=== PATIENT | male | born 1970 | race African-American/Black ===

== ENCOUNTER 2019-03-16 15:11 | Inpatient (IN) ==
--- NOTE | 2019-03-16 17:36 | PROVIDER DOCUMENTATION ---
HPI-General Adult - General Chief Complaint: Return/Recheck Stated Complaint: R-HAND SWELLING/RETURN/RCK Time Seen by Provider: 03/16/19 17:11 Source: patient Allergies/Adverse Reactions: Patient Allergies Allergy/AdvReac Type Severity Reaction Status Date / Time No Known Allergies Allergy Verified 10/29/14 11:30 Home Medications: Home Medication List Medication Instructions Recorded Confirmed Last Taken Type Dicyclomine [Bentyl] 20 mg PO BID PRN #20 capsule 10/21/16 06/22/17 Unknown Rx Ondansetron [Zofran] 4 mg PO Q6H PRN PRN #20 tablet 10/21/16 06/22/17 Unknown Rx Albuterol Sulfate [Proair 90 mcg IH Q6HR PRN 06/22/17 06/22/17 Unknown History Respiclick] Budesonide/Formoterol Inhaler 2 puff INH RTBID 06/22/17 06/22/17 Unknown History [Symbicort 160/4.5 Microgm Inhaler] Chlordiazepoxide [Librium] 25 mg PO TID #6 cap 06/26/17 Unknown Rx Cyanocobalamin [Vitamin B-12] 1,000 microgm PO DAILY #30 tab 06/26/17 Unknown Rx Folic Acid 1 mg PO DAILY #30 tab 06/26/17 Unknown Rx Thiamine [Vitamin B-1] 100 mg PO DAILY #30 tab 06/26/17 Unknown Rx Tramadol [Ultram] 50 mg PO Q6H PRN PRN #25 tab 06/26/17 Unknown Rx Naproxen 500 mg PO BID #20 tab 03/14/19 Unknown Rx Sulfamethoxazole/Tmp D.s. [Sept 1 ea PO BID #30 tab 03/14/19 Unknown Rx Ds] - History of Present Illness -Gen Adult Nature of Presenting Problems: [id number] presents to the ER for a recheck on a right hand injury. He states that on Mar 10 he hit a glass picture frame cutting his wrist. He came to the ER and was treated for a wound infection 3 days later and placed on oral antibiotics. He returns today for worsening of the infection. He states that he is unsure if he has been running fever at home. Location of Pain/Injury: reports: hand(s) (right wrist and hand) Pain Radiation: reports: arm(s) (right arm) Quality of Pain: reports: sharp, throbbing Severity: reports: moderate Onset/Duration: reports: 1 week ago Timing: reports: getting worse Similar Symptoms Previously?: Yes Recently seen or treated by another doctor?: Yes Review of Systems - Adult - REVIEW OF SYSTEMS - ADULT Constitutional: reports: see HPI, chills Eyes: reports: no symptoms reported Ears, Nose, Mouth & Throat: reports: no symptoms reported Cardiovascular: reports: no symptoms reported Respiratory: reports: no symptoms reported Gastrointestinal: reports: no symptoms reported Genitourinary: reports: no symptoms reported Musculoskeletal: reports: see HPI, joint pain (right wrist), joint swelling (right wrist) Integumentary: reports: see HPI, other (laceration with drainage and swelling of the right hand and fingers) Neurological: reports: no symptoms reported Psychiatric: reports: no symptoms reported Endocrine: reports: no symptoms reported Hematologic/Lymphatic: reports: no symptoms reported Allergic/Immunologic: reports: no symptoms reported All Other Systems: Reviewed and Negative Past History - Adult - PAST MEDICAL HISTORY-ADULT Review of Records: reports: Old Records Reviewed, Nursing Assessment Review, Medications Reviewed, Social history reviewed & non-contributory. Major Childhood Illnesses: reports: denies history Cardiovascular: reports: HTN Respiratory: reports: asthma, COPD Gastrointestinal: reports: denies history Obstetrical/Gynecological: reports: denies history Genitourinary: reports: denies history Musculoskeletal: reports: denies history Neurological: reports: denies history Psychiatric: reports: ptsd Endocrine/Immune: reports: denies history Other Conditions: reports: denies history - PRIOR SURGERIES/PROCEDURES Surgical/Procedure History: reports: orthopedic (extremity) (right BKA) - PRIOR HOSPITALIZATIONS Prior Hospitalizations: reports: psychiatric or rehab - IMMUNIZATION STATUS Childhood Immunizations: See Nurse Assessment Flu Vaccine: See Nurse Assessment - FAMILY HISTORY Family History: reviewed, not pertinent - SOCIAL HISTORY Smoking: greater than 1 pack/day Provider spent 3-5 mins advising pt. on dangers of tobacco.: Discussed manners to quit use, and f/u contacts for add'l counseling. Substance Use: denies Living Situation: family Physical Exam-General - PHYSICAL EXAM-ADULT Initial Vital Signs Reviewed: Yes - CONSTITUTIONAL General Appearance: no apparent distress, mild distress - EYES Eyes: PERRL/EOMI, pink conjunctivae - HEAD, EARS, NOSE, MOUTH & THROAT HENMT: moist mucous membranes - NECK Neck: full range of motion, supple - RESPIRATORY Respiratory: lungs clear, normal breath sounds - CARDIOVASCULAR Cardiovascular: regular rate, rhythm - GASTROINTESTINAL (ABDOMEN) Abdominal Exam: non tender, soft - LYMPHATIC Lymphatic: no adenopathy - MUSCULOSKELETAL Back Exam: normal inspection Extremity: erythema (right hand and fingers), swelling, tenderness (right hand to mid forearm) - SKIN Integumentary: erythema (right hand and fingers), laceration(s) (right wrist with purulent drainage), swelling (right hand, fingers, forarm), tenderness (right hand, fingers, forearm) - PSYCHIATRIC Psych/Mental Status: oriented x 3 Progress - PLAN OF CARE/RESULTS Progress/Plan/Lab Results: Vital Signs - 8 hr 03/16/19 15:21 Temperature 97.9 F Pulse Rate 110 H Respiratory Rate 18 Blood Pressure 117/67 O2 Sat by Pulse Oximetry 99 Orders Category Date Time Status CBC WITH ELECTRONIC DIFF [HEME] Stat Lab 03/16/19 17:29 Uncollected COMPREHENSIVE METABOLIC PANEL [CHEM] Stat Lab 03/16/19 17:29 Uncollected patient verbalizes an understanding of POC and agrees with treatment rendered here today. - CONSULTS/PCP/HOSPITALIST Notification #1 *Consult/PCP/Hospitalist*: Dr Morales Time Discussed: 18:21 Reason/Comments: Cellulitis, infected wound Consult Disposition: Admit Departure - Departure Date of Disposition Decision: 03/16/19 Time of Disposition Decision: 18:22 DIAGNOSIS: Infected wound Cellulitis Qualifiers: Site of cellulitis: extremity Site of cellulitis of extremity: upper extremity Laterality: right Qualified Code(s): L03.113 - Cellulitis of right upper limb Disposition: ADMITTED INPATIENT 09 Certified Medical Emergency: Emergent Condition: Critical Additional Freetext Instructions: ED Follow Up Instructions: You have been treated by a care provider in the Emergency Department. These instructions are being provided to you so you can have an understanding of how to care for yourself upon discharge. Upon discharge from the Emergency Department, you are responsible for making arrangements for follow-up care by a physician of your choice. Take all prescribed medications as directed. Return to the Emergency Department immediately for any new or worsening symptoms. You may call the Physician Referral phone number at [phone] to obtain a list of Physicians who are taking new patients. Referrals and Follow-Ups: Jt Ortega MD [Primary Care Provider] - - Critical Care Note This patient required my direct & personal management of CC.: No Attestation - Physician/ FLORY Attestation Patient care was provided by Advanced Practice Provider:: Yes Advanced Practice Provider:: Gera Tyler Advanced Practice Provider documentation review:: The Mid-level provider documentation, treatment plan and medical decision making was reviewed by the physician who agrees with all treatment and medical decision making by the MLP. The physician spent face to face time with patient:: No Advanced Practice Provider documentation review:: Supervising physician onsite and consulted in the evaluation and care of this patient. The physician did not have a face to face encounter with the patient.
[2019-03-16 18:30] LABS: BASO# 0.02 X1000 (0.0-0.2); BASO% 0.2 % (0.0-0.8); EOS% 0.9 % (0.0-10.0); HEMATOCRIT 36.2 % (42.0-52.0); HEMOGLOBIN 12.5 g/dL (14.0-18.0); IMM GRAN# 0.05 X1000 (0.0-0.04); IMM GRAN% 0.4 % (0.0-0.5); LYMPH# 1.36 X1000 (1.2-3.4); LYMPH% 12.1 % (20.5-51.1); MCHC 34.5 g/dL (33-37); MCV 81.2 FL (81-99); MONO# 2.24 X1000 (0.11-0.59); MONO% 19.9 % (1.7-9.3); MPV 9.1 FL (7.4-10.4); NEUT% 66.5 % (42.2-75.2); PLT 254 X1000 (130-400); RBC 4.46 XMIL (4.7-6.1); RDW 14.4 % (11.5-14.5); WBC 11.27 X1000 (4.8-10.8)
[2019-03-16 18:49] LABS: AGAP 16; ALKALINE PHOSPHATASE 84 U/L (32-122); BUN 13 mg/dL (8-22); CALCIUM 8.7 mg/dL (8.8-10.2); CHLORIDE 93 mmol/L (98-107); COSMO 261; ESTIMATED GFR > 60; GLUCOSE 100 mg/dL (70-104); GOT 25 U/L (10-34); GPT 20 U/L (10-44); POTASSIUM 3.8 mmol/L (3.5-5.1); SODIUM 130 mmol/L (136-145); TCO2 22 mmol/L (25-35); TOTAL PROTEIN 7.8 g/dL (6.3-8.3)
[2019-03-16] MEDS ORDERED: ZOFRAN IV PRN (19:53)
[2019-03-16] MEDS ORDERED: DUONEB (A & A) INH PRN (19:53)
[2019-03-16] MEDS ORDERED: VANCOMYCIN IV PER PHARMACY MISC SCH (19:53)
[2019-03-16] MEDS ORDERED: TYLENOL PO PRN (19:53)
[2019-03-16] MEDS: NS 1,000 ML IV SCH (21:08)
[2019-03-16] MEDS: ROCEPHIN 1 GM in NS 50 ML IV SCH (21:08)
[2019-03-16 21:23] LABS: BASO% 0.2 % (0.0-0.8); HEMATOCRIT 35.6 % (42.0-52.0); HEMOGLOBIN 12.1 g/dL (14.0-18.0); IMM GRAN% 0.3 % (0.0-0.5); LYMPH# 1.55 X1000 (1.2-3.4); LYMPH% 15.5 % (20.5-51.1); MCH 27.6 PG (27-31); MCV 81.3 FL (81-99); MONO% 17.6 % (1.7-9.3); MPV 9.2 FL (7.4-10.4); NEUT# 6.56 X1000 (1.4-6.5); NEUT% 65.4 % (42.2-75.2); PLT 271 X1000 (130-400); RBC 4.38 XMIL (4.7-6.1); RDW 14.3 % (11.5-14.5); WBC 10.03 X1000 (4.8-10.8)
[2019-03-16 21:24] LABS: BASO# 0.02 X1000 (0.0-0.2); IMM GRAN# 0.03 X1000 (0.0-0.04); MONO# 1.77 X1000 (0.11-0.59)
[2019-03-16 21:25] LABS: BILIRUBIN URINE NEGATIVE (NEGATIVE); BLOOD URINE NEGATIVE (NEGATIVE); GLUCOSE URINE NEGATIVE (NEGATIVE); KETONE URINE 1+(Small) mg/dL (NEGATIVE); LEUKOCYTES URINE NEGATIVE (NEGATIVE); NITRITE URINE NEGATIVE (NEGATIVE); PH URINE 6.5; PROTEIN URINE TRACE mg/dL (NEGATIVE); SP GRAVITY URINE 1.015; UROBILINOGEN URINE 4 mg/dL
[2019-03-16 21:26] LABS: CLARITY CLEAR (CLEAR); COLOR YELLOW
[2019-03-16 21:34] LABS: URINE WBC <10 /HPF (<10)
[2019-03-16 21:35] LABS: URINE BACTERIA NEGATIVE /HFP; URINE EPITHELIAL CELLS <10 /HPF (<10); URINE RBC <10 /HPF (<10); URINE SOURCE CLEAN CATCH
[2019-03-16 21:44] LABS: INR 0.93; PROTIME 12.9 Seconds (11.0-16.0)
[2019-03-16 21:45] LABS: PTT 37.7 Seconds (22.3-41.8)
--- NOTE | 2019-03-16 21:56 | Diag Imaging Result Doc PS360 ---
EXAM: CHEST-1 VIEW INDICATION: SEPSIS PROTOCOL TECHNIQUE: One view COMPARISON: 12/06/2018 FINDINGS: There is stable scoliosis. The lungs are grossly clear. There is no discrete pleural fluid collection or pneumothorax. The cardiomediastinal silhouette and central vasculature are grossly unremarkable. IMPRESSION: No evidence of acute pathology by plain radiograph. Electronically signed by Desean Pierre 03/16/2019 9:53 PM
[2019-03-16 21:57] LABS: CK INDEX 0.7 (0.0-2.5); CK-MB 2.54 ng/mL (0.0-5.0)
[2019-03-16] MEDS ORDERED: VANCOMYCIN 1 GM/NS 1 GM/250 ML IVPB IV ONE (22:00)
[2019-03-16] MEDS: NORCO-5 PO PRN (22:50)
[2019-03-16] MEDS ORDERED: VANCOMYCIN 500 MG/NS 500 MG/100 ML IVPB IV ONE (23:00)
--- NOTE | 2019-03-17 01:27 | HISTORY AND PHYSICAL ---
CHIEF COMPLAINT: Right hand pain, swelling. HISTORY OF PRESENT ILLNESS: Patient is a 49-year-old male who presented to [facility]'s ER a couple of days ago. He had apparently fallen 3 or 4 days prior to that on some glass and cut his wrist. He presented to the ER 3 days ago and was noted to have redness and swelling. He was placed on antibiotics. The patient states he has been taking his antibiotics twice a day with food although that does seem somewhat odd given that his prescription bottle completely packed full with Bactrim. Notes that his hand swelling and pain have continued to worsen. States he has good sensation in his fingertips. ALLERGIES: No known drug allergies. MEDICATIONS: I do not have an active prescription medication list although he has recently been on Bactrim. PAST MEDICAL HISTORY: Hypertension, COPD. He has had a BKA on the right. REVIEW OF SYSTEMS: Positive right hand and wrist swelling. Denies any fevers, chills, cough, congestion. Denies shortness of breath, dyspnea on exertion. Denies any swelling in his left lower extremity. Denies headaches, blurred vision, change in vision. Denies any diarrhea, constipation, melena, hematochezia. FAMILY HISTORY: Noncontributory. SOCIAL HISTORY: Patient lives at home. Denies illicit substance use. Does smoke at least a pack a day. PHYSICAL EXAMINATION: VITAL SIGNS: Reviewed. Temperature 97.9 degrees, pulse 110, respiratory rate 18, BP 117/67. GENERAL: Patient is awake, alert, currently in no respiratory distress. Very pleasant to talk with, sitting up on the side of bed. HEENT: Normocephalic. NECK: Supple. CARDIOVASCULAR: Regular rate. CHEST: Clear. ABDOMEN: Soft, nondistended. EXTREMITIES: Moves all extremities. He is noted to have a right BKA. SKIN: His right hand is swollen from the wrist to his fingertips. He has a laceration over the lateral wrist with some purulent drainage. He has moderate swelling of his hand and fingers. Has tenderness as well. NEUROLOGIC: He is awake, alert, oriented x3. LABORATORIES: Currently pending. ASSESSMENT: 1. Cellulitis right upper extremity, failed outpatient management. 2. Hypertension. 3. Chronic tobacco abuse. PLAN: We will admit patient to the hospital on vancomycin and Rocephin, follow his blood pressures, [place] for pain control and we will follow. cc: Jam Morales MD
[2019-03-17] MEDS: NORCO-5 PO PRN ×2 (03:54→08:23)
[2019-03-17 07:14] LABS: HEMOGLOBIN 10.9 g/dL (14.0-18.0); MCV 81.9 FL (81-99); MPV 9.1 FL (7.4-10.4); RBC 4.03 XMIL (4.7-6.1); RDW 14.4 % (11.5-14.5); WBC 7.45 X1000 (4.8-10.8)
[2019-03-17 07:43] LABS: AGAP 12; ALBUMIN 3.2 g/dL (3.5-5.0); ALKALINE PHOSPHATASE 70 U/L (32-122); BUN 9 mg/dL (8-22); CALCIUM 8.2 mg/dL (8.8-10.2); CHLORIDE 98 mmol/L (98-107); COSMO 261; CREATININE 0.7 mg/dL (0.7-1.2); ESTIMATED GFR > 60; GLUCOSE 101 mg/dL (70-104); GOT 21 U/L (10-34); GPT 16 U/L (10-44); POTASSIUM 3.5 mmol/L (3.5-5.1); SODIUM 131 mmol/L (136-145); TCO2 21 mmol/L (25-35); TOTAL PROTEIN 6.7 g/dL (6.3-8.3)
[2019-03-17] MEDS: LIBRIUM PO SCH ×3 (08:24→22:12)
[2019-03-17] MEDS: NS 1,000 ML IV SCH ×2 (10:58→19:44)
[2019-03-17] MEDS: NORCO-10 PO PRN ×2 (13:03→22:11)
--- NOTE | 2019-03-17 18:02 | PROGRESS NOTE ---
DATE: 03/17/2019 SUBJECTIVE: Patient notes his right hand is still swollen and tender. He still has good sensation of his fingertips. Denies any fevers or chills. OBJECTIVE: Temperature 98, pulse 81, respiratory rate 18, BP 113/79.General: Patient is awake. He is in no current respiratory distress. HEENT: Normocephalic. Neck: Supple. Cardiovascular: Regular rate. Chest: Clear, nonlabored. Abdomen: Soft, nondistended. Extremities: Moves all extremities. Neurologic: No changes. Skin: His right hand is still swollen, tender. His wrist actually has improved, currently is bandaged. Drainage seems to be improving as well. PLAN: We will continue patient in the hospital. Continue Rocephin, vancomycin. Continue pain control. We will actually increase his [place] from 5 to 10, and we will follow. cc: Jam Morales MD
[2019-03-17] MEDS: VANCOMYCIN 1,350 MG in NS 250 ML IV SCH (19:44)
[2019-03-17] MEDS: ROCEPHIN 1 GM in NS 50 ML IV SCH (22:13)
[2019-03-18] MEDS: NORCO-10 PO PRN ×5 (03:26→23:40)
[2019-03-18] MEDS: LIBRIUM PO SCH ×4 (03:26→21:09)
[2019-03-18] MEDS: VANCOMYCIN 1,350 MG in NS 250 ML IV SCH (11:04)
[2019-03-18] MEDS: NS 1,000 ML IV SCH ×2 (11:11→13:55)
--- NOTE | 2019-03-18 17:16 | PROGRESS NOTE ---
DATE: 03/18/2019 SUBJECTIVE: The patient notes he feels a lot better. The wound therapy did get lots of pus out yesterday. His hand is improved. Denies any fevers, chills. Denies loss of sensation in his fingertips. PHYSICAL EXAMINATION: Vital Signs: Temperature 98 degrees, pulse 98, respiratory rate 18, BP 126/74. General: Patient is awake. He is in no distress. HEENT: Normocephalic. Neck: Supple. Cardiovascular: Regular rate. Chest: Clear. Abdomen: Soft. Extremities: Moves all extremities. Skin: His right hand is still erythematous, still edematous, but the edema is much improved compared to yesterday's exam. He has full sensation of his digits distally. ASSESSMENT: 1. Cellulitis, right upper extremity. 2. Hypertension. 3. Chronic tobacco abuse. PLAN: We will continue antibiotics. Apparently he was growing gram-positive cocci. cc: Jam Morales MD
[2019-03-18] MEDS: ROCEPHIN 1 GM in NS 50 ML IV SCH (21:09)
[2019-03-19] MEDS: LIBRIUM PO SCH ×4 (02:20→20:15)
[2019-03-19] MEDS: NORCO-10 PO PRN ×5 (02:31→18:42)
[2019-03-19] MEDS: NS 1,000 ML IV SCH ×2 (02:32→20:15)
[2019-03-19] MEDS: VANCOMYCIN 1,350 MG in NS 250 ML IV SCH (05:46)
[2019-03-19] MEDS: CLINDAMYCIN 900 MG/D5W 900 MG/50 ML IVPB IV SCH ×2 (10:44→18:42)
--- NOTE | 2019-03-19 11:53 | Diag Imaging Result Doc PS360 ---
EXAM: WRIST COMPLETE RIGHT 03/19/2019 HISTORY: pain/trauma/? glass TECHNIQUE: Right wrist three views COMMENT: There is soft tissue swelling over the dorsum of the hand and medial to the distal ulna. The latter finding is somewhat more prominent than on the previous study of 03/14/2019. No radiopaque foreign bodies are demonstrated. There is no evidence of acute fracture or dislocation. IMPRESSION: Soft tissue swelling. No acute bony abnormality. Electronically signed by Jose Carlos James 03/19/2019 11:51 AM
--- NOTE | 2019-03-19 17:46 | PROGRESS NOTE ---
DATE: 03/19/2019 SUBJECTIVE: Patient notes that his right hand is a little more swollen today than yesterday. Still has good sensation. It is hurting. Still draining. Denies any fevers, chills, or rashes elsewhere. OBJECTIVE: Vital signs: Temperature 98.7, pulse 87, respiratory rate 18, BP 137/86. General: Patient is awake. Currently in no distress. HEENT: Normocephalic. Neck: Supple. Cardiovascular: Regular rate. Chest: Clear, nonlabored. Abdomen: Soft, nondistended. Extremities: Moves all extremities. Neurologic: No focal changes. Skin: His right hand is bandaged, clean, dry, intact. It is a little more swollen today than it was yesterday and a little more tender. ASSESSMENT: 1. Cellulitis right upper extremity with methicillin-sensitive Staphylococcus aureus. 2. Hypertension. 3. Chronic tobacco abuse. PLAN: We will continue the patient in hospital. Repeat x-ray does not show any bone involvement nor does it show any apparent foreign body. cc: Jam Morales MD
[2019-03-20] MEDS: LIBRIUM PO SCH ×2 (01:55→09:30)
[2019-03-20] MEDS: CLINDAMYCIN 900 MG/D5W 900 MG/50 ML IVPB IV SCH (01:56)
[2019-03-20] MEDS: NS 1,000 ML IV SCH (06:44)
[2019-03-20 08:04] VITALS: BP 143/91
[2019-03-20] MEDS ORDERED: CLEOCIN PO SCH (09:00)
[2019-03-20] MEDS: NORCO-10 PO PRN (09:30)
--- NOTE | 2019-03-21 09:46 | DISCHARGE SUMMARY ---
ADMISSION DATE: 03/16/2019 DISCHARGE DATE: 03/20/2019 ADMISSION DIAGNOSES: 1. Cellulitis, right upper extremity, failed outpatient management. 2. Hypertension. 3. Chronic tobacco abuse. DISCHARGE DIAGNOSES: 1. Cellulitis, right upper extremity with methicillin-resistant staphylococcus aureus. 2. Hypertension. 3. Chronic tobacco abuse. CONSULTATIONS: Wound Care. SURGERIES AND PROCEDURES: None. HOSPITAL COURSE: Mr. hSimon Mayberry is a 49-year-old male who presented to [facility] ER a couple of days ago. He apparently had fallen 3 or 4 days prior to admission, and had some glass cut into his wrist. He had actually presented to the ER 3 days prior to admission, was placed on antibiotics, but the antibiotic bottle apparently was still full. It was supposed to be Bactrim that he was taking. He had worsening of the infection. There was still good sensation of the fingertip. Was started on vancomycin and Rocephin, and blood cultures were obtained. Microbiology reveals that there is an MRSA. It is penicillin-resistant Staphylococcus aureus, oxacillin-sensitive, and will be discharged home with clindamycin 300 mg 3 times a day. He received at least 3 days worth of antibiotics here. DISCHARGE VITAL SIGNS: Temperature 98.5 degrees, heart rate 94, respiratory rate 20, blood pressure 143/91, O2 saturation 100% on room air. LABORATORY DATA: White blood cells 7000, hemoglobin 10, hematocrit 33, platelet count 291,000. Sodium 131, potassium 3.5, BUN 9, creatinine 0.7, glucose 101, calcium 8.2. Magnesium 2.0. Bilirubin 0.20, AST 21, ALT 16. CK of 382. Albumin is 3.2. Lactate was normal. IMAGING: He had a chest x-ray on 03/16/2019: Nothing acute. On 03/19/2019, had a right wrist x- ray, which showed soft tissue swelling. No acute abnormalities. DISCHARGE DIET: Heart Healthy. FOLLOWUP: Dr. Ortega. DISCHARGE INSTRUCTIONS: Diagnosis of cellulitis in the right wrist. Notify M.D. or return to the emergency department immediately for any of the following: Foul-smelling drainage, red streaks coming from the area, or color darkening, fever of 101 or above, increased pain. Keep all followup appointments. Take all prescribed medications as directed. Return to the emergency department for any new or worsening symptoms. DISCHARGE DISPOSITION: Home. Dictated by MADISYN Kenny for Jam Morales MD cc: MADISYN Kenny MD
--- NOTE | 2019-03-21 10:19 | DISCHARGE SUMMARY ---
ADMISSION DATE: 03/16/2019 DISCHARGE DATE: 03/20/2019 ADDENDUM: Patient seen and examined by myself. Full note dictated and discussed with nurse practitioner. Patient presented to the hospital with cellulitis, abscess formation on his right wrist and marcelo. He had fallen on some glass. Two x-rays did not demonstrate any foreign body. He did have lots of pus drainage and eventually it ultimately grew methicillin-sensitive Staphylococcus aureus. He continued to improve on discharge. He is able to move his wrist and hand, although painful had sensation. wth I am going to discharge him home on antibiotics. He will follow up outpatient with treatment facility of choice. He also needs to follow up with [*] cc: Jam Morales MD
== END 2019-03-20 10:23 | disposition home or self-care (01) | DRG 603 ==
LOC: P.ED 15:11 → P.MEDSURG 19:13
PROVIDERS: ATTEND Family Medicine